=== PATIENT | female | born 1975 | race Caucasian/White ===

== ENCOUNTER → 2017-01-11 | Day surgery (SDC) | payer BC ==
--- NOTE | 2017-01-09 07:30 | P.HPOB ---
History of Present Illness H&P Date: 01/09/17 Chief Complaint: Menorrhagia and endometrial polyp This patient is a pleasant 41-year-old 2 para 2 female who is presenting for further evaluation and treatment of menorrhagia. Patient's history is such that she's had many years of heavy menses. Most recently the patient states that her menstrual become a lot heavier with clots and lasting longer. Patient has a known history of uterine fibroids that have been stable through the years however most recent pelvic ultrasound also showed a 1 probable 1.1 cm endometrial polyp. Patient I discussed treatment options and we are going to proceed with hysteroscopy D&C for further evaluation and treatment. Patient also is considering an endometrial ablation although was undecided at the time of this dictation. Review of Systems Constitutional: Reports fatigue Cardiovascular: Denies chest pain, Denies shortness of breath Respiratory: Denies cough Gastrointestinal: Denies abdominal pain, Denies diarrhea, Denies nausea, Denies vomiting Genitourinary: Reports as per HPI Menstruation: Reports as per HPI, Reports period heavy Neurological: Denies numbness, Denies weakness Psychiatric: Denies anxiety, Denies depression Past Medical History Past Medical History: Hypertension Additional Past Medical History / Comment(s): Patient has a history of degenerative joint disease. Known uterine fibroids. History of Any Multi-Drug Resistant Organisms: None Reported Past Surgical History: Appendectomy Past Anesthesia/Blood Transfusion Reactions: No Reported Reaction Past Psychological History: Anxiety, Depression Smoking Status: Former smoker Past Alcohol Use History: None Reported Past Drug Use History: None Reported Medications and Allergies Home Medications Medication Instructions Recorded Confirmed Type Propranolol LA [Inderal LA] 01/09/17 History Allergies Allergy/AdvReac Type Severity Reaction Status Date / Time No Known Allergies Allergy Verified 01/09/17 07:23 Exam - OBG Physical Exam Abdomen: bowel sounds normal, no diffuse tenderness, no bruit present, no guarding noted, no hepatomegaly, no splenomegaly, no mass Vulva: both: normal Vagina: normal moisture, no discharge Cervix: no lesion, no discharge Uterus: enlarged (Uterus is approximately 8-10 weeks size.), nodular Results Transvaginal ultrasound done on November 10 shows uterine fibroids that have been stable measuring 3.3 cm and 4.6 cm. The endometrium was normal thickness of 8 mm however there was a 1.1 x 1.0 endometrial density consistent with a polyp. Assessment and Plan (1) Menorrhagia Narrative/Plan: This is a pleasant 41-year-old 2 para 2 female with long-standing menorrhagia and known uterine fibroids. Patient also has an endometrial polyp noted on her vaginal ultrasound. I had a long discussion with the patient about further evaluation and treatment options and we are going to proceed with a hysteroscopy and D&C for further evaluation and treatment. I also discussed possible endometrial ablation with the patient however at the time of this dictation she was undecided. This was reported as a possible endometrial ablation by Maya patient will decide her tell me that morning of surgery. We did discuss all the procedures and risks including risks of infection, bleeding, possible uterine perforation, and/or thermal injury. All the patient' s questions were answered and a written consent is obtained. Status: Chronic (2) Uterine fibroid Status: Chronic (3) Endometrial polyp Status: Chronic
[2017-01-10 08:38] VITALS: BMI 28.3
[~2017-01-11] MED LIST: DEXAMETHASONE SOD PHOS (MDV) 100 MG/10 ML VIAL IVP ONE; KETOROLAC 30 MG/ML 1 ML VIAL IVP ONE; LACTATED RINGERS 1,000 ML IV ONE; LACTATED RINGERS 1,000 ML IV SCH; LIDOCAINE 1% 20 ML VIAL (10MG/ML) FOR IV START INTRADERMA PRN; LIDOCAINE 1% INJ 10MG/ML (20 ML MDV) ONE; MIDAZOLAM 2 MG/2 ML VIAL ONE; ONDANSETRON 4 MG/2 ML VIAL IVP ONE; PROPOFOL 10 MG/ML 20 ML VIAL IV ONE; Pre Op ABX Message 1 EACH MISC MISCELLANE ONE
--- NOTE | 2017-01-11 07:53 | P.OP ---
Date of Procedure: 01/11/17 Preoperative Diagnosis: #1: Menorrhagia. #2: Endometrial polyp Postoperative Diagnosis: Same Procedure(s) Performed: #1: Hysteroscopy. #2: Dilation and curettage. #3: NovaSure endometrial ablation. Anesthesia: MAC Surgeon: Chase Shaffer Estimated Blood Loss (ml): 10 Urine output (ml): 20 Pathology: other (Uterine curettings) Condition: stable Disposition: PACU Indications for Procedure: Please see dictated H&P for intimate details of this patient's admission. In brief summary this is a pleasant 41-year-old female with long-standing menorrhagia that has become progressively worse. Patient ultrasound which showed a 1 cm endometrial polyp. Patient at this time is requesting hysteroscopy D&C and endometrial ablation for further treatment evaluation. Patient does understand the surgery's and risks including risks of infection, bleeding, possible uterine perforation, possible thermal injury. All the patient's questions are answered and written consent is obtained. Operative Findings: This patient had approximately 1 cm benign appearing endometrial polyp. Description of Procedure: This patient is taken to the operating room where she is laid in the supine position. She subsequent undergoes general mask anesthesia without incident. An adequate level of anesthesia, patient was placed in the dorsal lithotomy position. She has a vaginal perineal prep and drape. Examination under anesthesia shows a mildly enlarged uterus in mid position. Patient first has a weighted speculum placed in the posterior vagina. The anterior lip of the cervix was grabbed with an Allis clamp. I did drain the bladder for 20 mL of clear urine. I then gently sound the uterus to 9 cm. The cervix is gently dilated to allow the hysteroscope easily into the uterine cavity. Using saline solution, hysteroscopy is performed and endometrial cavity is measured at a length of 6.5 cm an endometrial polyp is visualized. Hysteroscope was then removed. I dilate the cervix more to allow the polyp forceps and a curette easily and the uterine cavity. At this time the polyp was removed and a gentle but thorough curettage is done. With this completed and the polyp removed. The NovaSure device is then opened and appears to be functioning properly. It is set at a length of 6.5 cm a width of 4.5 cm. It is then enabled at 161 W setting for 88 seconds. It did pass the cavity integrity test. This done the NovaSure device is then removed. Hysteroscopy is then performed and the cavity appears to be completely ablated and the polyp of course is now removed. This done the procedure is ended. The Allis clamp and weighted speculum was removed. All counts are correct 3. There are no complications. Patient is taken to the recovery room in satisfactory condition.
[2017-01-11 07:57] VITALS: RESP 16; TEMP 96.8
[2017-01-11 09:13] VITALS: BP 117/75; PULSE 58
== END | disposition home or self-care (01) ==
LOC: OR 06:15
PROVIDERS: ATTEND Obstetrics & Gynecology
DX: N84.0 Polyp of corpus uteri (principal); N92.0 Excessive and frequent menstruation with regular cycle; N85.00 Endometrial hyperplasia, unspecified; I10 Essential (primary) hypertension; Z87.891 Personal history of nicotine dependence; Z79.899 Other long term (current) drug therapy
CPT/HCPCS: 81025; 88305; 58563; J2250; J2405; J2001; J1885; J1100; J2704

== ENCOUNTER → 2017-06-04 | Outpatient (CLI) | payer BC ==
--- NOTE | 2017-06-06 07:44 | MM ---
Reason for exam: screening (asymptomatic). Last mammogram was performed 3 years and 4 months ago. History: Family history of breast cancer in grandmother. Took hormonal contraceptives for 12 years beginning at age 14. Physical Findings: A clinical breast exam by your physician is recommended on an annual basis and results should be correlated with mammographic findings. MG 3D Screening Mammo W/Cad Bilateral CC and MLO view(s) were taken. Prior study comparison: February 04, 2014, bilateral MG screening mammo w CAD. March 23, 2009, right breast diagnostic digital joann. There are scattered fibroglandular densities. There is a new group of 2mm calcifications on the right breast in the upper inner quadrant at middle posterior depth. Benign appearing left breast calcifications. No suspicious abnormality in the right breast. ASSESSMENT: Incomplete: need additional imaging evaluation, BI-RAD 0 RECOMMENDATION: Special view mammogram of the right breast. [facility] will attempt to contact patient to return for supplemental views.
== END | disposition home or self-care (01) ==
LOC: RADMAMWWP 11:42
PROVIDERS: ATTEND Obstetrics & Gynecology
DX: Z12.31 Encounter for screening mammogram for malignant neoplasm of breast (principal); Z80.3 Family history of malignant neoplasm of breast
CPT/HCPCS: 77063; 77067

== ENCOUNTER → 2017-06-08 | Outpatient (CLI) | payer BC ==
--- NOTE | 2017-06-08 11:01 | MM ---
Reason for exam: additional evaluation requested from abnormal screening. Last mammogram was performed less than 1 month ago. History: Family history of breast cancer in grandmother. Took hormonal contraceptives for 12 years beginning at age 14. Physical Findings: Nurse did not find any significant physical abnormalities on exam. MG 3D Work Up W/Cad RT CC and MLO view(s) were taken of the right breast. Prior study comparison: June 04, 2017, bilateral MG 3d screening mammo w/cad. February 04, 2014, bilateral MG screening mammo w CAD. The breast tissue is almost entirely fat. Finding: There are indeterminate, coarse, grouped/clustered calcifications in the upper inner quadrant, posterior position of the right breast 10cm from the nipple. New finding since June 04, 2017 and February 04, 2014. ASSESSMENT: Suspicious, BI-RAD 4 RECOMMENDATION: Surgical consultation and stereotactic core biopsy of the right breast. Called Dr. Shaffer with mammographic findings and has scheduled an appointment for the patient for 06/13/17 at 10:[address] Liz. PRELIMINARY REPORT CALLED AND FAXED TO DR. LIZ ON 06/08/17.
--- NOTE | 2017-06-22 11:03 | PCN ---
PROCEDURE NOTE The patient is a 42-year-old white female who presented for a mammographic abnormality, which was found in her right breast. The patient had a bilateral mammogram performed 06/04/2017, which revealed scattered fibroglandular densities and a new group of 2 mm calcifications in the right breast in the upper inner quadrant at the middle posterior depth. Benign-appearing left breast calcifications. No suspicious abnormality in the left breast. Special views of the right breast were recommended. Additional views of the right breast revealed indeterminate coarse-grouped clustered calcifications in the upper inner quadrant, posterior position of the right breast 10 cm from the nipple. New finding from prior mammogram of February 04, 2014. The recommendation as per Radiology was for surgical consultation and stereotactic core biopsy of the right breast. The patient underwent a breast examination which did not reveal any dominant masses or nodules of concern in either breast. The right breast was recommended for stereotactic core biopsy. DOCUMENTATION OF PROCEDURE: Performed right breast. LOCATION: Upper inner quadrant posterior position right breast approximately 10 cm from the nipple. Approach used to target the lesion is cc from above. The patient was placed on the stereo table and the lesion of concern was identified. The skin of the breast was then prepped using Betadine; 1% lidocaine with bicarb was used to anesthetize the skin. A 9-gauge vacuum-assisted needle was used to obtain the specimens. Radiograph of the specimen revealed calcifications of concern had been sampled. A secure rahul was placed and confirmation of placement was obtained via radiograph. The patient tolerated the procedure in stable condition. The specimen was sent for pathologic evaluation. MMODL / IJN: [id number] /
== END | disposition home or self-care (01) ==
LOC: RADMAMWWP 09:26
PROVIDERS: ATTEND Obstetrics & Gynecology
DX: R92.8 Other abnormal and inconclusive findings on diagnostic imaging of breast (principal); Z80.3 Family history of malignant neoplasm of breast
CPT/HCPCS: 77065; G0279

== ENCOUNTER → 2017-06-22 | Day surgery (SDC) | payer BC ==
[2017-06-22 07:27] VITALS: PULSE 51; RESP 16; BMI 28.3
[2017-06-22 08:55] VITALS: BP 114/75; TEMP 98.1
--- NOTE | 2017-06-22 11:20 | MM ---
EXAMINATION TYPE: MG stereo VAD BX RT DATE OF EXAM: 06/22/2017 COMPARISON: 06/04/2017 CLINICAL HISTORY: New group of 2 mm calcifications within the right upper inner quadrant at middle depth. TECHNIQUE: Stereotactic guided core biopsy of right breast. FINDINGS: The procedure of stereotactic guided core biopsy was explained to the patient. Benefits, alternatives, and risks were discussed. An informed consent was then obtained. The shortness pathway for biopsy was chosen. Shortness pathway was craniocaudal from above approach. I performed the localization, then surgeon, Dr. Liz performed the remainder of the procedure. A vacuum assisted biopsy gun was used to obtain multiple core samples. The patient tolerated the procedure well without any immediate complication. The patient was kept in the radiology department for short stay after the procedure and then discharged home in stable condition. Targeted calcifications are identified in specimen mammogram. Post biopsy mammogram shows the clip to appear in satisfactory position relative to the targeted area of concern on the preprocedure images. IMPRESSION: SUCCESSFUL, UNCOMPLICATED STEREOTACTIC GUIDED CORE BIOPSY A 2 MM GROUP OF CALCIFICATIONS OF LOW SUSPICION AND THE RIGHT UPPER INNER QUADRANT AT MIDDLE DEPTH, FULL PATHOLOGY RESULTS TO FOLLOW. Pathology Results: Benign RIGHT BREAST, MULTIPLE NEEDLE CORE BIOPSIES: PREDOMINANTLY ADIPOSE TISSUE WITH FIBROUS SEPTAE SHOWING BENIGN LESIONS INCLUDING GIANT CELL REACTION, PIGMENT LADEN MACROPHAGES AND DYSTROPHIC CALCIFICATION, CONSISTENT WITH PRIOR TRAUMA ( ORGANIZED FAT NECROSIS). Recommendation Follow up mammogram of the right breast in 6 months. MTDD
== END | disposition home or self-care (01) ==
LOC: RADMAMWWP 07:05
PROVIDERS: ATTEND Surgery
DX: N64.1 Fat necrosis of breast (principal); R92.8 Other abnormal and inconclusive findings on diagnostic imaging of breast; Z85.3 Personal history of malignant neoplasm of breast
CPT/HCPCS: 88305; 19081; A4648; J2001

== ENCOUNTER → 2019-05-02 | Outpatient (CLI) | payer BC ==
--- NOTE | 2019-05-06 13:13 | MM ---
Reason for exam: screening (asymptomatic). Last mammogram was performed 1 year and 2 months ago. History: Patient is postmenopausal. Family history of breast cancer in grandmother. Benign MG stereo VAD BX RT of the right breast, June 22, 2017. Took hormonal contraceptives for 12 years beginning at age 14. Physical Findings: A clinical breast exam by your physician is recommended on an annual basis and results should be correlated with mammographic findings. MG 3D Screening Mammo W/Cad Bilateral CC and MLO view(s) were taken. Prior study comparison: March 13, 2018, right breast MG 3d diag mammo w/cad RT. June 08, 2017, right breast MG 3d work up w/cad RT. There are scattered fibroglandular densities. Previous mammotome biopsy in the right breast. Benign oil cysts on the left. No significant changes when compared with prior studies. ASSESSMENT: Negative, BI-RAD 1 RECOMMENDATION: Routine screening mammogram of both breasts in 1 year.
== END | disposition home or self-care (01) ==
LOC: RADMAMWWP 13:03
PROVIDERS: ATTEND Obstetrics & Gynecology
DX: Z12.31 Encounter for screening mammogram for malignant neoplasm of breast (principal); Z80.3 Family history of malignant neoplasm of breast
CPT/HCPCS: 77063; 77067